=== PATIENT | female | born 1975 | race African-American/Black ===

== ENCOUNTER 2017-11-30 17:55 | Emergency (ER) | payer OTHER ==
[~2017-11-30] VITALS: Ht 177.8 cm; Wt 99.6 kg
[2017-11-30] MEDS ORDERED: CALCIUM GLUCONATE 100 MG/ML 10 ML IVP ONE (17:59)
[2017-11-30] MEDS ORDERED: EPINEPHrine 1:10,000 [1 MG/10 ML] SYRINGE IVP ONE (17:59)
[2017-11-30] MEDS ORDERED: SODIUM BICARBONATE [ADULT] 8.4% 50 MEQ/50 ML SYRINGE IVP ONE (17:59)
[2017-11-30] MEDS ORDERED: NALOXONE HCL 1 MG/ML 2 ML SYG IVP ONE (17:59)
[2017-11-30 18:14] VITALS: BP 0/0
[2017-11-30] MEDS ORDERED: ZOLP5 PO (19:21)
[2017-11-30] MEDS ORDERED: OLAN7.5T2 PO (19:21)
[2017-11-30] MEDS ORDERED: VIST50 PO (19:21)
== END 2017-11-30 20:55 | disposition expired ==
LOC: EDBD 17:58 → EMS 17:58
DX: I46.9 Cardiac arrest, cause unspecified (principal)
CPT/HCPCS: 31500; 82962; 92950; 99291; J0171; J0610; J2310; J3490